=== PATIENT | female | born 1990 | race Caucasian/White ===

== ENCOUNTER 2017-11-17 18:38 | Emergency (ER) | payer OTHER ==
[2017-11-17 18:47] VITALS: BP 117/69; PULSE 71; TEMP 98.3; BMI 23.6
--- NOTE | 2017-11-17 18:48 | PDOC ---
Rapid Medical Evaluation Time Seen by Provider: 11/17/17 18:46 Medical Evaluation: 11/17/17 18:46 I have performed a brief in-person evaluation of this patient. The patient presents with a chief complaint of:L chest pain x 3 days. No sob, palpitations, cough, f/c. No pmhx, no obvious RF for DVT/PE Pertinent physical exam findings: stable w/ clear chest/lungs I have ordered the following:ekg The patient will proceed to the ED for further evaluation. Discharge Disposition - Diagnosis Chest pain Qualifiers: Chest pain type: unspecified Qualified Code(s): R07.9 - Chest pain, unspecified - Referrals - Patient Instructions - Post Discharge Activity
[2017-11-17] MEDS ORDERED: ACETAMINOPHEN 325 MG TABLET (FP) PO ONE (21:09)
[2017-11-17] MEDS ORDERED: ACETAMINOPHEN 325 MG TABLET (FP) ONE (21:12)
--- NOTE | 2017-11-17 21:17 | PDOC ---
History of Present Illness - General History Source: Patient Exam Limitations: No Limitations - History of Present Illness Initial Comments: 11/17/17 22:14 The patient is a 27 year old female with no significant past medical history presents to the emergency department with chest pain. The patient reports non radiating pain with no aggravating or alleviating factors. The reports she experienced lightheadedness before going to bed. The patient reports intermittent epigastric moving pain. The patient states she had flu like symptoms 2 weeks ago, like achy feeling. The patient states her grandfather had heart disease who in his 70s. Denies nausea, vomiting, diarrhea or constipation. Denies fever, chills, sob or coughing. Denies dysuria, hematuria, frequency or urgency to urinate. LMP: 2 weeks ago. Allergies: NKDA Social history: None reported Surgical history: None reported PCP: None. <Aislinn Alonzo - Last Filed: 11/17/17 22:13> <Mitra Lee - Last Filed: 11/18/17 00:58> - General Chief Complaint: Chest Pain Stated Complaint: CHEST PAIN Time Seen by Provider: 11/17/17 18:46 Past History <Aislinn Alonzo - Last Filed: 11/17/17 22:13> - Suicide/Smoking/Psychosocial Hx Smoking History: Never smoked Information on smoking cessation initiated: No Hx Alcohol Use: No Drug/Substance Use Hx: No <Mitra Lee - Last Filed: 11/18/17 00:58> - Past Medical History Allergies/Adverse Reactions: Allergies Allergy/AdvReac Type Severity Reaction Status Date / Time No Known Allergies Allergy Verified 11/18/17 00:48 Home Medications: Ambulatory Orders NK [No Known Home Medication] 11/18/17 Review of Systems - Review of Systems Able to Perform ROS?: Yes Comments:: 11/17/17 22:14 GENERAL/CONSTITUTIONAL: No fever or chills. No weakness. HEAD, EYES, EARS, NOSE AND THROAT: No change in vision. No ear pain or discharge. No sore throat. CARDIOVASCULAR: (+) chest pain. No shortness of breath. RESPIRATORY: No cough, wheezing, or hemoptysis. GASTROINTESTINAL:(+) belly pain No nausea, vomiting, diarrhea or constipation. GENITOURINARY: No dysuria, frequency, or change in urination. MUSCULOSKELETAL: No joint or muscle swelling or pain. No neck or back pain. SKIN: No rash NEUROLOGIC: No headache, vertigo, loss of consciousness, or change in strength/ sensation. ENDOCRINE: No increased thirst. No abnormal weight change. HEMATOLOGIC/LYMPHATIC: No anemia, easy bleeding, or history of blood clots. ALLERGIC/IMMUNOLOGIC: No hives or skin allergy. <Aislinn Alonzo - Last Filed: 11/17/17 22:13> *Physical Exam - Vital Signs Last Vital Signs Temp Pulse Resp BP Pulse Ox 98.3 F 71 20 117/69 99 11/17/17 18:45 11/17/17 18:45 11/17/17 18:45 11/17/17 18:45 11/17/17 18:45 - Physical Exam Comments: 11/17/17 22:15 GENERAL: Perc score: Negative. Awake, alert, and fully oriented, in no acute distress HEAD: No signs of trauma EYES: PERRLA, EOMI, sclera anicteric, conjunctiva clear ENT: Auricles normal inspection, hearing grossly normal, nares patent, oropharynx clear without exudates. Moist mucosa NECK: Normal ROM, supple, no lymphadenopathy, JVD, or masses LUNGS: Breath sounds equal, clear to auscultation bilaterally. No wheezes, and no crackles HEART: Regular rate and rhythm, normal S1 and S2, no murmurs, rubs or gallops ABDOMEN: Soft, nontender, normoactive bowel sounds. No guarding, no rebound. No masses EXTREMITIES: Normal range of motion, no edema. No clubbing or cyanosis. No cords, erythema, or tenderness NEUROLOGICAL: Cranial nerves II through XII grossly intact. Normal speech, normal gait SKIN: Warm, Dry, normal turgor, no rashes or lesions noted. <Aislinn Alonzo - Last Filed: 11/17/17 22:13> - Vital Signs Last Vital Signs Temp Pulse Resp BP Pulse Ox 98.3 F 71 20 117/69 99 11/17/17 18:45 11/17/17 18:45 11/17/17 18:45 11/17/17 18:45 11/17/17 18:45 <Mitra Lee - Last Filed: 11/18/17 00:58> Heart Score/ECG Review - ECG Intrepretation Comment:: 11/17/17 22:29 sinus at 79, nl axis, nl interval, no acute st/t wave findings <Mitra Lee - Last Filed: 11/18/17 00:58> ED Treatment Course - LABORATORY CBC & Chemistry Diagram: 11/17/17 21:17 11/17/17 21:17 - Medications Given in the ED: ED Medications Discontinued Medications Generic Name Dose Route Start Last Admin Trade Name Mick PRN Reason Stop Dose Admin Acetaminophen 650 mg 11/17/17 21:09 11/17/17 21:21 Tylenol - PO 11/17/17 21:10 650 mg ONCE ONE Administration <Aislinn Alonzo - Last Filed: 11/17/17 22:13> - LABORATORY CBC & Chemistry Diagram: 11/17/17 21:17 11/17/17 21:17 <Mitra Lee - Last Filed: 11/18/17 00:58> Medical Decision Making - Medical Decision Making 11/17/17 22:29 a/p: 27yo female with 1 hour of atypical L sided cp - currently resolved -no CAD risk factors -PERC negative -no acute findings on ekg -will check labs given recent URI -suspect poss pleurisy -will monitor and reassess 11/18/17 00:48 trop negative cxr clear labs reviewed ua negative ucg negative stable for d/c to home and follow up was outpt with pmd and cards if pain continues recommend tylenol or motrin for pain 11/18/17 00:57 discussed all results answered all questions stable for d/c to home <Mitra Lee - Last Filed: 11/18/17 00:58> *DC/Admit/Observation/Transfer - Attestations Scribe Attestion: 11/17/17 22:15 Documentation prepared by Aislinn Alonzo, acting as medical screener for Mitra Lee DO. <Aislinn Alonzo - Last Filed: 11/17/17 22:13> - Discharge Dispostion Decision to Admit order: No - Attestations Physician Attestion: 11/18/17 00:49 I, Dr. Mitra Lee DO, attest that this document has been prepared under my direction and personally reviewed by me in its entirety. I further attest, that it accurately reflects all work, treatment, procedures and medical decision -making performed by me. <Mitra Lee - Last Filed: 11/18/17 00:58> Diagnosis at time of Disposition: Chest pain Qualifiers: Chest pain type: unspecified Qualified Code(s): R07.9 - Chest pain, unspecified - Discharge Dispostion Disposition: HOME Condition at time of disposition: Stable - Referrals Referrals: Aniket Haile MD [Staff Physician] - Pola Cain MD [Staff Physician] - - Patient Instructions Printed Discharge Instructions: DI for Atypical Chest Pain Additional Instructions: Please take tylenol or motrin for pain. Please return to the ED with any further concerns or complaints. Please make an appointment to see your PMD in 2- 3 days. 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
[2017-11-17 21:49] LABS: BASO % 0.5 % (0-2.0); EOS % 1.1 % (0-4.5); HEMATOCRIT 38.4 % (32.4-45.2); HEMOGLOBIN 12.9 GM/dL (10.7-15.3); MCH 29.6 pg (25.7-33.7); MCHC 33.5 g/dl (32.0-36.0); MEAN CELL VOLUME 88.3 fl (80-96); MEAN PLT VOLUME 9.2 fl (7.5-11.1); MONO % 9.4 % (3.8-10.2); PLATELET COUNT 283 K/MM3 (134-434); RBC 4.35 M/mm3 (3.60-5.2); RDW 12.9 % (11.6-15.6)
[2017-11-17 23:03] LABS: HCG,QUALITATIVE URINE NEGATIVE
[2017-11-18 00:38] LABS: URINE APPEARANCE CLEAR; URINE BILIRUBIN NEGATIVE (<2.0 mg/dL); URINE COLOR STRAW; URINE GLUCOSE (UA) NEGATIVE (NEGATIVE); URINE KETONE NEGATIVE (NEGATIVE); URINE LEUK ESTERASE NEGATIVE (NEGATIVE); URINE NITRITE NEGATIVE (NEGATIVE); URINE PROTEIN NEGATIVE (NEGATIVE); URINE UROBILINOGEN NEGATIVE mg/dL (0.2-1.0)
[2017-11-18 00:48] LABS: ALBUMIN 4.3 g/dl (3.5-5.0); ALK PHOS 89 U/L (32-92); ANION GAP 4 (8-16); BILIRUBIN,TOTAL 0.5 mg/dl (0.2-1.0); BLOOD UREA NITROGEN 13 mg/dl (7-18); CALCIUM 9.3 mg/dl (8.4-10.2); CHLORIDE 104 mmol/L (98-107); CO2 29 mmol/L (22-28); CREATININE 0.7 mg/dl (0.6-1.3); GLUCOSE,RANDOM 90 mg/dl (74-106); POTASSIUM 3.9 mmol/L (3.5-5.1); SGOT/AST 19 U/L (10-42); SGPT/ALT 16 U/L (10-40); SODIUM 137 mmol/L (136-145); TOT PROT 7.4 g/dl (6.4-8.3)
--- NOTE | 2017-11-18 16:31 | EKG ---
Test Reason : Blood Pressure : / mmHG Vent. Rate : 072 BPM Atrial Rate : 072 BPM P-R Int : 130 ms QRS Dur : 076 ms QT Int : 392 ms P-R-T Axes : 054 014 038 degrees QTc Int : 429 ms NORMAL SINUS RHYTHM NORMAL ECG WHEN COMPARED WITH ECG OF 17-NOV-2017 18:55, NO SIGNIFICANT CHANGE WAS FOUND Confirmed by JENA JON MD ([id number]) on 11/18/2017 4:30:52 PM Referred By: Confirmed By:JENA JON MD
--- NOTE | 2017-11-18 16:31 | EKG ---
Test Reason : Blood Pressure : / mmHG Vent. Rate : 079 BPM Atrial Rate : 079 BPM P-R Int : 122 ms QRS Dur : 076 ms QT Int : 374 ms P-R-T Axes : 054 016 035 degrees QTc Int : 428 ms NORMAL SINUS RHYTHM NORMAL ECG NO PREVIOUS ECGS AVAILABLE Confirmed by JENA JON MD ([id number]) on 11/18/2017 4:31:17 PM Referred By: Confirmed By:JENA JON MD
== END 2017-11-18 00:59 | disposition home or self-care (01) ==
LOC: JER 18:38
DX: R07.9 Chest pain, unspecified (principal)
CPT/HCPCS: 36415; 71046-TC-FY; 80053; 81003; 82550; 84484; 84703; 85025; 93005; 93010; 99281-25